=== PATIENT | female | born 1940 ===

== ENCOUNTER 2016-09-29 11:00 | Outpatient (RCR) | payer MEDICARE, OTHER | END 2016-10-19 | disposition home or self-care (01) | LOC: WCC 11:00 | DX: L97.911 Non-pressure chronic ulcer of unspecified part of right lower leg limited to breakdown of skin (principal); L97.909 Non-pressure chronic ulcer of unspecified part of unspecified lower leg with unspecified severity; I87.2 Venous insufficiency (chronic) (peripheral); E11.51 Type 2 diabetes mellitus with diabetic peripheral angiopathy without gangrene; E11.622 Type 2 diabetes mellitus with other skin ulcer; Z88.0 Allergy status to penicillin; I10 Essential (primary) hypertension; Z79.82 Long term (current) use of aspirin | CPT/HCPCS: 29580; 82962; G0463 ==

== ENCOUNTER 2017-01-05 08:45 | Outpatient (RCR) | payer MEDICARE, OTHER | END 2017-01-16 | disposition home or self-care (01) | LOC: WCC 08:45 | DX: S81.802D Unspecified open wound, left lower leg, subsequent encounter (principal); X58.XXXD Exposure to other specified factors, subsequent encounter; Z88.0 Allergy status to penicillin; Z80.9 Family history of malignant neoplasm, unspecified; Z82.49 Family history of ischemic heart disease and other diseases of the circulatory system; I10 Essential (primary) hypertension; E11.9 Type 2 diabetes mellitus without complications | CPT/HCPCS: G0463 ==